=== PATIENT | female | born 1990 | race Caucasian/White ===

== ENCOUNTER 2018-08-27 20:16 | Emergency (ER) | payer BC ==
[~2018-08-27] VITALS: Ht 160 cm; Wt 54.4 kg
--- NOTE | 2018-08-27 20:44 | NUR ---
Pt ambulated to ER w mother with c/o right side abd pain w n/v since 0900 today. Pt states has hx of gastritis & took carafate 1 g 1 hr [employer]. Pt states had 5 episodes of vomiting today. No diarrhea/constipation. Denies chest pain/sob. No acute distress noted. Will ctm.
--- NOTE | 2018-08-27 20:58 | NUR ---
Dr. Callie BAY MD at bedside to evaluate pt.
[2018-08-27] MEDS ORDERED: ONDANSETRON 4 MG/2 ML VIAL IV ONE (21:00)
[2018-08-27] MEDS ORDERED: PANTOPRAZOLE SODIUM 40 MG VIAL IV ONE (21:00)
[2018-08-27] MEDS ORDERED: IV NORMAL SALINE 1000 ML BAG IV ONE (21:00)
[2018-08-27 21:20] LABS: BASOPHILS % (AUTO) 0.2 % (0.0-2.0); EOSINOPHILS % (AUTO) 0.3 % (0.0-7.0); HEMATOCRIT 40.8 % (31.2-41.9); HEMOGLOBIN 13.9 g/dL (10.9-14.3); LYMPHOCYTES # (AUTO) 0.7 K/uL (20.0-40.0); MEAN CORPUSCULAR HEMOGLOBIN 31.8 uug (24.7-32.8); MEAN CORPUSCULAR HGB CONC 34 g/dL (32.3-35.6); MEAN CORPUSCULAR VOLUME 93.4 fL (75.5-95.3); MONOCYTES # (AUTO) 0.2 K/uL (2.0-10.0); MONOCYTES % (AUTO) 2.8 % (0.0-11.0); NEUTROPHILS % (AUTO) 87.7 % (38.5-71.5); PLATELET COUNT (AUTO) 184 K/uL (179-408); RED BLOOD CELL COUNT(AUTO) 4.37 MIL/uL (3.63-4.92)
[2018-08-27] MEDS ORDERED: PANTOPRAZOLE SODIUM 40 MG VIAL ONE (21:26)
[2018-08-27] MEDS ORDERED: ONDANSETRON 4 MG/2 ML VIAL ONE (21:26)
[2018-08-27 21:28] LABS: *BILIRUBIN,URIN NEGATIVE (NEGATIVE); *BLOOD, URINE Trace-intact (NEGATIVE); *CLARITY,URINE SLIGHTLY CLOUDY (CLEAR); *COLOR,URINE YELLOW (YELLOW); *KETONES,URINE 4+ (NEGATIVE); *UROBILINOGEN,URINE 0.2 E.U./dl (NORMAL); LEUKOCYTE ESTERASE ,URINE NEGATIVE (NEGATIVE); NITRITE, URINE NEGATIVE (NEGATIVE); PH,URINE 5.5 (5.0-8.0); UGLUCOSE NEGATIVE (NEGATIVE)
[2018-08-27 21:30] LABS: CREATININE 0.7 mg/dL (0.6-1.3); POTASSIUM 3.5 mmol/L (3.5-5.1)
[2018-08-27 21:34] LABS: BACTERIA,URINE MODERATE /HPF (NONE SEEN); RBC,URINE 0-3 /HPF (0-3); SQUAMOUS EPITHELIAL CELL,UR FEW /HPF (NONE SEEN)
[2018-08-27 21:36] LABS: BILIRUBIN,DIRECT 0.2 mg/dL (0.0-0.2); BILIRUBIN,TOTAL 0.9 mg/dL (0.2-1.0); TOTAL PROTEIN, SERUM 8.1 g/dL (6.4-8.2)
[2018-08-27] MEDS ORDERED: LIDOCAINE VISCUS 2% 15 ML UDC MM ONE (21:45)
[2018-08-27] MEDS ORDERED: MAG HYDROX/AL HYDROX/SIMETH 30 ML LIQUID UDC PO ONE (21:45)
[2018-08-27] MEDS ORDERED: LIDOCAINE VISCUS 2% 15 ML UDC ONE (22:00)
[2018-08-27] MEDS ORDERED: MAG HYDROX/AL HYDROX/SIMETH 30 ML LIQUID UDC ONE (22:00)
--- NOTE | 2018-08-27 22:00 | NUR ---
Pt states she still feels abd discomfort but no more nausea. MD notified.
[2018-08-27] MEDS ORDERED: HYDROMORPHONE 1 MG/1 ML DISP.SYRIN ONE (22:29)
[2018-08-27] MEDS ORDERED: HYDROMORPHONE 1 MG/1 ML DISP.SYRIN IV ONE (22:30)
--- NOTE | 2018-08-27 23:31 | NUR ---
electronic lab technician at bedside.
[2018-08-28] MEDS ORDERED: ACETAMINOPHEN ES 500 MG TABLET ONE (00:01)
--- NOTE | 2018-08-28 00:13 | NUR ---
IV removed. Catheter intact and site benign. Pressure and 4x4 gauze applied to site. No bleeding noted.
[2018-08-28] MEDS ORDERED: ACETAMINOPHEN ES 500 MG TABLET PO ONE (00:15)
--- NOTE | 2018-08-28 00:18 | NUR ---
Patient discharged to home in stable conditon. Written and verbal after care instructions given. Patient verbalizes understanding of instructions. Pt ambulated out of ER in steady gait with mother who will drive home. All belongings w pt. VSS. NAD noted. Pt states she feels better.
[2018-08-28 00:33] VITALS: BP 104/60
== END 2018-08-28 00:18 | disposition home or self-care (01) ==
LOC: ER 20:16
DX: R10.13 Epigastric pain (principal); R10.31 Right lower quadrant pain; R11.10 Vomiting, unspecified; R50.9 Fever, unspecified; K21.9 Gastro-esophageal reflux disease without esophagitis; Z88.5 Allergy status to narcotic agent
CPT/HCPCS: 36415; 76705; 80048; 80076; 81001; 83690; 84702; 85025; 96361; 96374; 96375; 99284; C9113; J1170; J2405; A4663; A9150; J7030